=== PATIENT | male | born 1980 | race Caucasian/White ===

== ENCOUNTER → 2018-07-16 | Emergency (ER) | payer BC ==
[~2018-07-16] VITALS: Ht 195.6 cm; Wt 84.4 kg
[~2018-07-16] MED LIST: PERCOCET 5-3251 EACH PO
== END | disposition left against medical advice (07) ==
LOC: ER 11:00
DX: S70.01XA Contusion of right hip, initial encounter (principal); M25.451 Effusion, right hip; M25.551 Pain in right hip; S72.091 Other fracture of head and neck of right femur; W01.198A Fall on same level from slipping, tripping and stumbling with subsequent striking against other object, initial encounter; Y93.01 Activity, walking, marching and hiking; Y92.480 Sidewalk as the place of occurrence of the external cause; Y99.8 Other external cause status
CPT/HCPCS: 72197